=== PATIENT | male | born 1945 | race Hispanic/Latino ===

== ENCOUNTER 2017-04-27 08:10 | Emergency (ER) | payer MEDICARE ==
[2017-04-27 09:12] LABS: BASOPHILS % (AUTO) 0.5 % (0.0-5.0); EOSINOPHILS % (AUTO) 0.8 % (0.0-8.0); HEMATOCRIT 41.3 % (42-54); LYMPHOCYTES % (AUTO) 22.2 % (21.0-51.0); MEAN CORPUSCULAR HEMOGLOBIN 30.2 pg (27.0-33.0); MEAN CORPUSCULAR HGB CONC 34.3 g/dL (32.0-36.0); MEAN CORPUSCULAR VOLUME 88.2 fL (79-99); MONOCYTES % (AUTO) 5.1 % (3.0-13.0); NEUTROPHILS % (AUTO) 71.4 % (40.0-77.0); PLATELET COUNT (AUTO) 262 K/uL (130-400); RED BLOOD CELL COUNT(AUTO) 4.68 MIL/uL (4.50-6.20); RED CELL DISTRIBUTION WIDTH 13.2 % (11.0-15.5); WHITE BLOOD COUNT (AUTO) 8.8 K/uL (4.8-10.8)
[2017-04-27] MEDS ORDERED: FOSPHENYTOIN SODIUM 500 MG/10ML VIAL IJ ONE (09:14)
[2017-04-27 09:24] LABS: CREATININE 0.9 mg/dL (0.5-1.5); POTASSIUM 3.6 mmol/L (3.5-5.1)
[2017-04-27 09:28] LABS: ALBUMIN 3.7 g/dL (3.5-5.0); BILIRUBIN,TOTAL 0.5 mg/dL (0.2-1.0); TOTAL PROTEIN, SERUM 7.3 g/dL (6.0-8.3)
== END 2017-04-27 10:12 | disposition home or self-care (01) ==
LOC: EDH 08:10
DX: G40.909 Epilepsy, unspecified, not intractable, without status epilepticus (principal); E11.9 Type 2 diabetes mellitus without complications; E78.5 Hyperlipidemia, unspecified; I10 Essential (primary) hypertension; Z87.891 Personal history of nicotine dependence
CPT/HCPCS: 36415; 70450; 80053; 82948; 85025; 93005; 96365; 99285; Q2009

== ENCOUNTER → 2017-06-22 | Outpatient (CLI) | payer MEDICARE | END | disposition home or self-care (01) | LOC: OIH 09:15 | PROVIDERS: ATTEND Family Medicine | DX: I10 Essential (primary) hypertension (principal) | CPT/HCPCS: 71046 ==

== ENCOUNTER 2020-02-22 06:24 | Observation (INO) | payer OTHER, MEDICARE ==
[~2020-02-22] VITALS: Ht 162.6 cm; Wt 82.6 kg
[~2020-02-22 06:24] MED LIST: ATOR10 PO; DONE10TA43 PO; LISI-613 PO; METF-446 PO; PHEN100C9 PO
[2020-02-22] MEDS ORDERED: ACETAMINOPHEN 650 MG SUPPOSITORY RC ONE (06:44)
[2020-02-22] MEDS ORDERED: ZOSYN 3.375GM+NS 50ML 50 ML IV ONE (06:44)
[2020-02-22 07:00] LABS: ABG BASE EXCESS -2.9 mmol/L (-2.0-3.0); ABG HCO3 19.9 mmol/L (21.0-28.0); ABG OXYGEN SATURATION 94.3 % (95.0-99.0); ABG PCO2 30 mmHg (35-48)
[2020-02-22 07:23] LABS: BASOPHILS % (AUTO) 0.2 % (0.0-5.0); EOSINOPHILS % (AUTO) 0.2 % (0.0-8.0); HEMATOCRIT 37.3 % (42-54); LYMPHOCYTES % (AUTO) 18.3 % (21.0-51.0); MEAN CORPUSCULAR HEMOGLOBIN 29.1 pg (27.0-33.0); MEAN CORPUSCULAR VOLUME 88.2 fL (79-99); MONOCYTES % (AUTO) 10.5 % (3.0-13.0); NEUTROPHILS % (AUTO) 70.2 % (40.0-77.0); PLATELET COUNT (AUTO) 424 K/uL (130-400); RED BLOOD CELL COUNT(AUTO) 4.23 MIL/uL (4.50-6.20); RED CELL DISTRIBUTION WIDTH 12.9 % (11.0-15.5); WHITE BLOOD COUNT (AUTO) 9.8 K/uL (4.8-10.8)
[2020-02-22 07:31] LABS: APPEARANCE,URINE Clear (CLEAR); BILIRUBIN,URINE Negative (NEGATIVE); COLOR,URINE Dark Yellow (YELLOW); GLUCOSE, URINE (UA) Negative (NEGATIVE); KETONES,URINE 40 mg/dL (NEGATIVE); LEUKOCYTE ESTERASE ,URINE Negative (NEGATIVE); NITRATE,URINE Negative (NEGATIVE); OCCULT BLOOD,URINE Small (NEGATIVE); PROTEIN,URINE Trace mg/dL (NEGATIVE)
[2020-02-22 07:40] LABS: INR 2.81 (0.85-1.15); PROTHROMBIN TIME 29.2 SEC (9.6-11.6)
[2020-02-22 07:43] LABS: ALANINE AMINOTRANSFERASE 75 U/L (12-78); ALBUMIN 2.9 g/dL (3.5-5.0); ASPARTATE AMINOTRANSFERASE 44 U/L (10-37); BILIRUBIN,TOTAL 0.4 mg/dL (0.2-1.0); CARBON DIOXIDE 22 mmol/L (21-32); CHLORIDE 102 mmol/L (101-111); CREATINE KINASE, TOTAL 36 U/L (21-232); CREATININE 0.9 mg/dL (0.5-1.5); GLOMERULAR FILTR. RATE CALC 88 mL/min (>60); GLUCOSE,RANDOM 183 mg/dL (70-105); MYOGLOBIN 31 ng/mL (10-92); POTASSIUM 4.5 mmol/L (3.5-5.1); SODIUM SERUM 137 mmol/L (136-145); TOTAL PROTEIN, SERUM 6.5 g/dL (6.0-8.3); TROPONIN I < 0.04 ng/mL (0.00-0.06); UREA NITROGEN, BLOOD 15 mg/dL (7-18)
[2020-02-22 07:55] LABS: BACTERIA,URINE None Seen /HPF (None Seen); MUCUS,URINE Moderate LPF (None Seen)
[2020-02-22 07:56] LABS: SQUAMOUS EPITHELIAL CELL,UR Rare /HPF (0-2); TRANSITIONAL EPI CELLS,URINE Rare /HPF (None Seen); WBC,URINE 0-1 /HPF (0-1)
[2020-02-22] MEDS ORDERED: VANCOMYCIN 1GM+NS 250ML 250 ML IV ONE (09:12)
[2020-02-22] MEDS ORDERED: CEFTRIAXONE SODIUM 1 GM ONE (09:13)
[2020-02-22] MEDS ORDERED: AMPICILLIN 1GM+NS 50ML 50 ML IV SCH (09:30)
[2020-02-22] MEDS ORDERED: LABETALOL 20 MG/4 ML DISP.SYRIN IV PRN (12:00)
[2020-02-22] MEDS ORDERED: LIDOCAINE HCL-MPF 1% 2ML VIAL IV PRN (12:00)
[2020-02-22] MEDS ORDERED: DEXTROSE 50%-WATER 50 ML DISP.SYRIN IV PRN (12:00)
[2020-02-22] MEDS ORDERED: ACETAMINOPHEN-CODEINE 300/30MG TAB PO PRN (12:00)
[2020-02-22] MEDS ORDERED: ONDANSETRON HCL 4 MG/2 ML VIAL IVP PRN (12:00)
[2020-02-22] MEDS ORDERED: POTASSIUM CHLORIDE 10% ELIXIR 20 MEQ/15 ML UDCUP PO PRN (12:00)
[2020-02-22] MEDS ORDERED: POTASSIUM CHLORIDE 20MEQ/100ML 100 ML IV PRN (12:00)
[2020-02-22] MEDS ORDERED: ACETAMINOPHEN 325 MG TAB PO PRN (12:00)
[2020-02-22] MEDS ORDERED: POTASSIUM CHLORIDE 20 MEQ ERTAB PO PRN (12:00)
[2020-02-22] MEDS ORDERED: GLUCAGON 1MG KIT 1 MG ML IM PRN (12:00)
[2020-02-22 12:36] VITALS: BP 118/73
[2020-02-22] MEDS ORDERED: PHEN100C9 PO (12:48)
[2020-02-22] MEDS ORDERED: ENOX100D4 SQ (12:48)
[2020-02-22] MEDS ORDERED: WARF-57 PO (12:48)
[2020-02-22] MEDS ORDERED: METO25TA6 PO (12:48)
[2020-02-22] MEDS ORDERED: DONE10TA36 PO (12:48)
[2020-02-22] MEDS ORDERED: LISI-613 PO (12:48)
[2020-02-22] MEDS ORDERED: METF-446 PO (12:48)
[2020-02-22] MEDS ORDERED: ATOR10 PO (12:48)
[2020-02-22] MEDS: PHENYTOIN SODIUM 100 MG ERCAP PO SCH ×2 (14:08→20:08)
[2020-02-22 16:00] VITALS: BP 128/75
[2020-02-22] MEDS: INSULIN HUMULIN R 100 UNIT/ML 3ML SQ SCH ×2 (16:30→19:30)
--- NOTE | 2020-02-22 16:37 | NUR ---
HEMATURIA NOTED IN FINNEGAN BAG. BONNIE INSIDE SALES TRAINER MADE AWARE. ORDERS RECEIVED TO HOLD LOVENOX AND COUMADIN
[2020-02-22 19:30] VITALS: BP 129/74
[2020-02-22] MEDS: DONEPEZIL HCL 5 MG TAB PO SCH (19:58)
[2020-02-22] MEDS: FAMOTIDINE 20MG TAB 20 MG TAB PO SCH (19:58)
[2020-02-22] MEDS: ATORVASTATIN CALCIUM 20 MG TABLET PO SCH (19:58)
[2020-02-22 23:07] VITALS: BP 123/79
[2020-02-23 03:59] VITALS: BP 122/69
[2020-02-23 04:50] LABS: BASOPHILS % (AUTO) 0.2 % (0.0-5.0); EOSINOPHILS % (AUTO) 0.7 % (0.0-8.0); HEMATOCRIT 34.3 % (42-54); LYMPHOCYTES % (AUTO) 19.9 % (21.0-51.0); MEAN CORPUSCULAR HEMOGLOBIN 29.4 pg (27.0-33.0); MEAN CORPUSCULAR HGB CONC 33.8 g/dL (32.0-36.0); MEAN CORPUSCULAR VOLUME 87.1 fL (79-99); MONOCYTES % (AUTO) 12.3 % (3.0-13.0); NEUTROPHILS % (AUTO) 66.3 % (40.0-77.0); PLATELET COUNT (AUTO) 424 K/uL (130-400); RED BLOOD CELL COUNT(AUTO) 3.94 MIL/uL (4.50-6.20); RED CELL DISTRIBUTION WIDTH 12.6 % (11.0-15.5)
[2020-02-23 05:01] LABS: INR 2.95 (0.85-1.15); PROTHROMBIN TIME 30.6 SEC (9.6-11.6)
[2020-02-23 05:18] LABS: ALANINE AMINOTRANSFERASE 58 U/L (12-78); ALBUMIN 2.5 g/dL (3.5-5.0); AMMONIA 15 umol/L (11-32); ASPARTATE AMINOTRANSFERASE 36 U/L (10-37); B-TYPE NATRIURETIC PEPTIDE 28 pg/mL (0-100); BILIRUBIN,TOTAL 0.7 mg/dL (0.2-1.0); CARBON DIOXIDE 21 mmol/L (21-32); CHLORIDE 101 mmol/L (101-111); CREATININE 0.7 mg/dL (0.5-1.5); GLOMERULAR FILTR. RATE CALC 117 mL/min (>60); GLUCOSE,RANDOM 140 mg/dL (70-105); LACTATE DEHYDROGENASE 263 U/L (81-234); PHOSPHORUS 3.5 mg/dL (2.5-4.9); POTASSIUM 3.9 mmol/L (3.5-5.1); SODIUM SERUM 136 mmol/L (136-145); THYROID STIMULATING HORMONE 1.63 uIU/mL (0.36-3.74); TOTAL PROTEIN, SERUM 6.8 g/dL (6.0-8.3); UREA NITROGEN, BLOOD 11 mg/dL (7-18)
[2020-02-23] MEDS: INSULIN HUMULIN R 100 UNIT/ML 3ML SQ SCH ×4 (07:30→20:57)
[2020-02-23 08:00] VITALS: BP 116/65
[2020-02-23] MEDS: PHENYTOIN SODIUM 100 MG ERCAP PO SCH ×3 (08:44→20:45)
[2020-02-23] MEDS: LISINOPRIL 20 MG TABLET PO SCH (08:44)
[2020-02-23] MEDS: FAMOTIDINE 20MG TAB 20 MG TAB PO SCH ×2 (08:44→20:45)
[2020-02-23] MEDS: MAGNESIUM 2GM PREMIX 50ML 50 ML IV PRN (08:53)
--- NOTE | 2020-02-23 09:30 | NUR ---
CHART CHECK COMPLETED. Pt IS A 74 Y.O. MALE ADMITTED SECONDARY TO COVID, PUI, R/O MENINGITIS. Pt HAS A PAST MEDICAL HISTORY SIGNIFICANT FOR SEIZURE, ALZHEIMER DEMENTIA, DVT, PE, DM, HTN, HLD. Pt CURRENTLY WITH NO DIET ORDER IN PLACE. PLEASE REQUEST FORMAL SKILLED SPEECH/SWALLOW EVALUATION IF Pt PRESENTS WITH +S/S OF ASPIRATION SUCH COUGH RESPONSE, THROAT CLEAR, OR WET VOCAL QUALITY DURING P.O. Addendum: 02/23/20 at [address] Amended: Links added.
[2020-02-23 11:22] VITALS: BP 130/77
--- NOTE | 2020-02-23 12:39 | NUR ---
ADRIANNE NOTE/IA UNABLE TO MET WITH PATIENT IN ROOM, NEXT OF KIN CALLED, MARSHALL WOOTEN. PER DAUGHTER, PATIENT LIVES ALONE SHE VISITS DAILY IN BETWEEN PROVIDER SERVICES, HAS PROVIDER SERVICES FOR 4-5 1/2 HR DAILY MON-SUN, HAS ROLLATOR WALKER, AND FEELS SAFE FOR PATIENT TO RETURN HOME. DAUGHTER ASKED ABOUT INCREASE IN PROVIDER SERVICES. DAUGHTER ADVISED TO CALL PROVIDER COMPANY AND REQUEST HOURS OR INFORMATION ON QUALIFYING DIAGNOSIS FOR INCREASE IN HOURS, DAUGHTER VERBALIZED UNDERSTANDING. CORRECT PATIENT ADDRESS AND PHONE NUMBER FOLLOWS: [phone] [address] [facility]. [id number] Addendum: 02/23/20 at 1242 by GUILHERME SILVA RN CM Amended: Links added.
--- NOTE | 2020-02-23 15:19 | NUR ---
DISCHARGE DELAYED PER BONNIE THUMB SEWER DISCHARGE PT AFTER PT VOIDS. FINNEGAN REMOVED AT 1500. CATHETER INTACT. TOLERATED WELL. NO SIGNS OF HEMATURIA NOTED. PT DUE TO VOID BEFORE 0000 AT 02/24/20
[2020-02-23 16:00] VITALS: BP 136/76
[2020-02-23 20:40] VITALS: BP 106/70
[2020-02-23] MEDS: DONEPEZIL HCL 5 MG TAB PO SCH (20:45)
[2020-02-23] MEDS: ATORVASTATIN CALCIUM 20 MG TABLET PO SCH (20:45)
[2020-02-23 23:49] VITALS: BP 109/74
[2020-02-24 04:27] VITALS: BP 127/67
[2020-02-24] MEDS: INSULIN HUMULIN R 100 UNIT/ML 3ML SQ SCH (05:49)
[2020-02-24] MEDS: MAGNESIUM 2GM PREMIX 50ML 50 ML IV PRN (06:17)
--- NOTE | 2020-02-24 07:35 | NUR ---
PENDING DISCHARGE RECEIVED NURSE FROM [facility]. REPORTS PT ABLE TO URINATE APPROX 125ML DURING SHIFT. PT CLEAR FOR DISCHARGE. DAUGHTER NOTIFIED. WILL BE ABLE TO PICK PT UP AT 0930
[2020-02-24 08:03] VITALS: BP 121/76
[2020-02-24] MEDS: PHENYTOIN SODIUM 100 MG ERCAP PO SCH (08:48)
[2020-02-24] MEDS: LISINOPRIL 20 MG TABLET PO SCH (08:49)
[2020-02-24] MEDS: FAMOTIDINE 20MG TAB 20 MG TAB PO SCH (08:49)
--- NOTE | 2020-02-24 09:38 | NUR ---
DISCHARGE Pt clear for discharge at this time. VS WNL. aaox2 per baseline. NAD. Breathing even and unlabored on room air. Discharge instructions, follow up appointment and quarantine teaching rendered to patient and daughter via telephone. Silvia CERVANTES as tumbler machine operator.
== END 2020-02-24 09:56 | disposition home or self-care (01) ==
LOC: EDH 06:24 → EDHIP 10:33 → 2BH 12:10 → 2AH 17:07
PROVIDERS: ADMIT Internal Medicine Pulmonary Disease; ATTEND Internal Medicine Pulmonary Disease
DX: U07.1 COVID-19 (principal); E11.9 Type 2 diabetes mellitus without complications; E78.5 Hyperlipidemia, unspecified; I10 Essential (primary) hypertension; G30.9 Alzheimer's disease, unspecified; F02.80 Dementia in other diseases classified elsewhere, unspecified severity, without behavioral disturbance, psychotic disturbance, mood disturbance, and anxiety; G40.909 Epilepsy, unspecified, not intractable, without status epilepticus; I26.99 Other pulmonary embolism without acute cor pulmonale; Z79.01 Long term (current) use of anticoagulants; Z79.899 Other long term (current) drug therapy; Z86.711 Personal history of pulmonary embolism; Z86.718 Personal history of other venous thrombosis and embolism
CPT/HCPCS: 36415 ×3; 36600; 70450; 71045; 80053 ×2; 80185; 81001; 82010; 82140; 82550; 82728; 82803; 82948 ×8; 83605; 83615; 83735 ×2; 83874; 83880; 84100; 84145 ×2; 84443; 84484; 85025 ×2; 85384; 85610 ×2; 85730; 86140; 86900; 86901; 87040 ×2; 87088; 87426; 87804 ×2; 93005; 96365; 96366 ×2; G0378 ×47; J0290; J0696; J2543; J3370; J3475 ×2; U0003

== ENCOUNTER 2021-04-07 11:38 | Observation (INO) | payer OTHER, MEDICARE ==
[~2021-04-07] VITALS: Ht 167.6 cm; Wt 102.5 kg
[~2021-04-07 11:38] MED LIST changes: +DONE-53 PO; -DONE10TA43 PO; +ENOX100D4 SQ; -LISI-613 PO; +LISI20TA24 PO; +METO25TA6 PO; +WARF-57 PO
[2021-04-07] MEDS ORDERED: ZOSYN 3.375GM +NS 50ML IV SCH ×2 (13:30→16:00)
[2021-04-07] MEDS ORDERED: ZOSYN 3.375GM+NS 50ML 50 ML IV SCH (13:30)
[2021-04-07] MEDS ORDERED: MORPHINE 4 MG SYG IV SCH (13:30)
[2021-04-07] MEDS ORDERED: ONDANSETRON 4MG INJ IVP SCH (13:30)
[2021-04-07 13:45] LABS: BASOPHILS % (AUTO) 0.5 % (0.0-5.0); EOSINOPHILS % (AUTO) 3.2 % (0.0-8.0); HEMATOCRIT 37.8 % (42-54); LYMPHOCYTES % (AUTO) 22.4 % (21.0-51.0); MEAN CORPUSCULAR HEMOGLOBIN 30.4 pg (27.0-33.0); MONOCYTES % (AUTO) 8.9 % (3.0-13.0); NEUTROPHILS % (AUTO) 64.6 % (40.0-77.0); PLATELET COUNT (AUTO) 332 K/uL (130-400); RED BLOOD CELL COUNT(AUTO) 3.98 MIL/uL (4.50-6.20); RED CELL DISTRIBUTION WIDTH 12.1 % (11.0-15.5); WHITE BLOOD COUNT (AUTO) 11.2 K/uL (4.8-10.8)
[2021-04-07 13:54] LABS: CREATININE 1.4 mg/dL (0.5-1.5); POTASSIUM 4.4 mmol/L (3.5-5.1)
[2021-04-07 13:56] LABS: INR 1.12 (0.85-1.15); PROTHROMBIN TIME 12.1 SEC (9.6-11.6)
[2021-04-07 13:57] LABS: PARTIAL THROMBOPLASTIN TIME 32.3 SEC (26.3-35.5)
[2021-04-07 14:00] LABS: ALBUMIN 3.6 g/dL (3.5-5.0); BILIRUBIN,TOTAL 0.4 mg/dL (0.2-1.0); TOTAL PROTEIN, SERUM 7.9 g/dL (6.0-8.3)
[2021-04-07 14:23] LABS: APPEARANCE,URINE Clear (CLEAR); BILIRUBIN,URINE Negative (NEGATIVE); COLOR,URINE Dark Yellow (YELLOW); GLUCOSE, URINE (UA) Negative (NEGATIVE); KETONES,URINE Trace mg/dL (NEGATIVE); LEUKOCYTE ESTERASE ,URINE Negative (NEGATIVE); NITRATE,URINE Negative (NEGATIVE); OCCULT BLOOD,URINE Negative (NEGATIVE); PROTEIN,URINE Negative (NEGATIVE)
[2021-04-07 14:33] LABS: BACTERIA,URINE Few /HPF (None Seen); RBC,URINE 0-1 /HPF (0-1)
[2021-04-07 14:34] LABS: MUCUS,URINE Rare LPF (None Seen); SQUAMOUS EPITHELIAL CELL,UR Rare /HPF (0-2)
[2021-04-07] MEDS ORDERED: LIDOCAINE HCL 400MG/20ML VIAL ONE (14:39)
[2021-04-07] MEDS ORDERED: HYDRALAZINE 20MG/ML VIAL IV PRN (16:00)
[2021-04-07] MEDS ORDERED: MORPHINE 2 MG SYG IVP PRN (16:00)
[2021-04-07] MEDS ORDERED: TEMAZEPAM 15 MG CAPSULE PO PRN (16:00)
[2021-04-07] MEDS ORDERED: ONDANSETRON 4MG INJ IVP PRN (16:00)
[2021-04-07] MEDS ORDERED: HYDROCODONE/ACETAMINOPHEN 5/325 MG TAB PO PRN (16:00)
[2021-04-07] MEDS ORDERED: ACETAMINOPHEN 325 MG TAB PO PRN (16:00)
[2021-04-07] MEDS ORDERED: ACETAMINOPHEN 650 MG SUPPOSITORY RC PRN (16:00)
[2021-04-07] MEDS ORDERED: CLONIDINE HCL 0.1 MG TABLET PO PRN (16:00)
[2021-04-07] MEDS ORDERED: PANTOPRAZOLE 40 MG TAB DR PO SCH (16:30)
[2021-04-07] MEDS: LACTATED RINGERS 1000ML 1,000 ML IV SCH ×2 (17:27→23:40)
[2021-04-07] MEDS: INSULIN HUMULIN R 100 UNIT/ML 3ML SQ SCH ×2 (17:37→21:00)
[2021-04-07] MEDS ORDERED: ENOXAPARIN SODIUM 40 MG/0.4 ML SYRINGE SQ ONE (22:00)
[2021-04-07] MEDS: ZOSYN 3.375GM+NS 50ML 50 ML IV SCH (22:14)
[2021-04-07 22:30] VITALS: BP 110/44
[2021-04-07] MEDS ORDERED: CLIN-141 PO (23:21)
[2021-04-07] MEDS ORDERED: MEMA10TA55 PO (23:21)
[2021-04-07] MEDS ORDERED: TYL3B PO (23:21)
[2021-04-07] MEDS ORDERED: APIX5TAB PO (23:21)
[2021-04-07] MEDS ORDERED: LEVE500T19 PO (23:21)
[2021-04-07] MEDS ORDERED: BACL10TA PO (23:21)
[2021-04-07] MEDS ORDERED: GLIP2.5T2 PO (23:21)
[2021-04-07] MEDS ORDERED: IBUP-2070 PO (23:21)
[2021-04-08] MEDS: LACTATED RINGERS 1000ML 1,000 ML IV SCH ×3 (03:23→22:54)
[2021-04-08 03:51] VITALS: BP 99/54
[2021-04-08] MEDS: ZOSYN 3.375GM+NS 50ML 50 ML IV SCH ×3 (04:31→20:19)
[2021-04-08 04:50] LABS: BASOPHILS % (AUTO) 0.6 % (0.0-5.0); HEMATOCRIT 31.8 % (42-54); LYMPHOCYTES % (AUTO) 23.2 % (21.0-51.0); MEAN CORPUSCULAR HEMOGLOBIN 30.1 pg (27.0-33.0); MEAN CORPUSCULAR HGB CONC 32.7 g/dL (32.0-36.0); MEAN CORPUSCULAR VOLUME 91.9 fL (79-99); MONOCYTES % (AUTO) 8.3 % (3.0-13.0); NEUTROPHILS % (AUTO) 62.4 % (40.0-77.0); PLATELET COUNT (AUTO) 284 K/uL (130-400); RED BLOOD CELL COUNT(AUTO) 3.46 MIL/uL (4.50-6.20); RED CELL DISTRIBUTION WIDTH 12.1 % (11.0-15.5); WHITE BLOOD COUNT (AUTO) 9.7 K/uL (4.8-10.8)
[2021-04-08 05:16] LABS: CREATININE 1.4 mg/dL (0.5-1.5); POTASSIUM 4.2 mmol/L (3.5-5.1)
[2021-04-08 05:20] LABS: HEMOGLOBIN A1C 8.8 % (4.0-6.0)
[2021-04-08] MEDS: INSULIN HUMULIN R 100 UNIT/ML 3ML SQ SCH ×4 (06:27→21:00)
[2021-04-08] MEDS: PANTOPRAZOLE 40 MG TAB DR PO SCH (06:32)
[2021-04-08 06:42] VITALS: BP 112/65
[2021-04-08] MEDS: ENOXAPARIN SODIUM 40 MG/0.4 ML SYRINGE SQ SCH (08:17)
[2021-04-08] MEDS: LEVETIRACETAM 500 MG TABLET PO SCH ×2 (10:45→20:16)
[2021-04-08] MEDS: PHENYTOIN SODIUM 100 MG ERCAP PO SCH ×2 (10:45→17:18)
[2021-04-08 11:42] VITALS: BP 100/59
[2021-04-08] MEDS ORDERED: ACETAMINOPHEN WITH CODEINE 1 TAB TAB PO PRN (12:00)
[2021-04-08] MEDS: DONEPEZIL HCL 5 MG TAB PO SCH (12:39)
[2021-04-08] MEDS: METFORMIN HCL 500 MG TABLET PO SCH ×2 (12:39→17:17)
[2021-04-08 16:00] VITALS: BP 111/66
[2021-04-08 20:00] VITALS: BP 122/70
[2021-04-08] MEDS: MEMANTINE HCL 5 MG TABLET PO SCH (20:16)
[2021-04-08] MEDS: METOPROLOL TARTRATE 25 MG TAB PO SCH (20:16)
[2021-04-08] MEDS ORDERED: ATORVASTATIN 10 MG TABLET PO SCH (21:00)
[2021-04-08] MEDS ORDERED: NON-FORMULARY MEDICATION 1 EACH (Metformin HCl 1,000 MG) PO SCH (21:00)
[2021-04-09] VITALS: BP 128/66
[2021-04-09 04:00] VITALS: BP 115/66
[2021-04-09] MEDS: ZOSYN 3.375GM+NS 50ML 50 ML IV SCH (04:06)
[2021-04-09 04:36] LABS: HEMATOCRIT 31.4 % (42-54); MEAN CORPUSCULAR HEMOGLOBIN 29.4 pg (27.0-33.0); MEAN CORPUSCULAR HGB CONC 32.2 g/dL (32.0-36.0); MEAN CORPUSCULAR VOLUME 91.3 fL (79-99); RED BLOOD CELL COUNT(AUTO) 3.44 MIL/uL (4.50-6.20); RED CELL DISTRIBUTION WIDTH 11.9 % (11.0-15.5); WHITE BLOOD COUNT (AUTO) 8.5 K/uL (4.8-10.8)
[2021-04-09 04:51] LABS: CREATININE 1.3 mg/dL (0.5-1.5); POTASSIUM 3.8 mmol/L (3.5-5.1)
[2021-04-09] MEDS: INSULIN HUMULIN R 100 UNIT/ML 3ML SQ SCH ×2 (06:21→11:11)
[2021-04-09] MEDS: PANTOPRAZOLE 40 MG TAB DR PO SCH (06:56)
[2021-04-09] MEDS: PHENYTOIN SODIUM 100 MG ERCAP PO SCH ×2 (06:56→11:11)
[2021-04-09 08:12] VITALS: BP 118/68
[2021-04-09] MEDS ORDERED: LISINOPRIL 20 MG TABLET PO SCH (09:00)
[2021-04-09] MEDS: DONEPEZIL HCL 5 MG TAB PO SCH (09:09)
[2021-04-09] MEDS: LEVETIRACETAM 500 MG TABLET PO SCH (09:09)
[2021-04-09] MEDS: MEMANTINE HCL 5 MG TABLET PO SCH (09:10)
[2021-04-09] MEDS: METOPROLOL TARTRATE 25 MG TAB PO SCH (09:10)
[2021-04-09] MEDS: METFORMIN HCL 500 MG TABLET PO SCH (09:14)
[2021-04-09] MEDS: ENOXAPARIN SODIUM 40 MG/0.4 ML SYRINGE SQ SCH (09:16)
[2021-04-09 10:56] VITALS: BP 124/78
[2021-04-09] MEDS ORDERED: CLIN-141 PO (13:36)
[2021-04-09] MEDS ORDERED: AMOX-426 PO (13:36)
[2021-04-09] MEDS ORDERED: APIXABAN 5 MG TABLET PO ONE (15:20)
[2021-04-09] MEDS ORDERED: APIXABAN 5 MG TABLET PO SCH (21:00)
== END 2021-04-09 18:10 | disposition home or self-care (01) ==
LOC: EDH 11:38 → EDHIP 15:57 → 3BH 21:16
PROVIDERS: ADMIT Internal Medicine Pulmonary Disease; ATTEND Internal Medicine Pulmonary Disease
DX: L02.212 Cutaneous abscess of back [any part, except buttock and flank] (principal); Z20.822 Contact with and (suspected) exposure to COVID-19; L72.3 Sebaceous cyst; E11.9 Type 2 diabetes mellitus without complications; I10 Essential (primary) hypertension; E78.5 Hyperlipidemia, unspecified; I25.10 Atherosclerotic heart disease of native coronary artery without angina pectoris; G30.9 Alzheimer's disease, unspecified; F02.80 Dementia in other diseases classified elsewhere, unspecified severity, without behavioral disturbance, psychotic disturbance, mood disturbance, and anxiety; R11.2 Nausea with vomiting, unspecified; E78.00 Pure hypercholesterolemia, unspecified; G40.909 Epilepsy, unspecified, not intractable, without status epilepticus; N28.9 Disorder of kidney and ureter, unspecified; Z86.718 Personal history of other venous thrombosis and embolism; Z86.711 Personal history of pulmonary embolism; Z79.899 Other long term (current) drug therapy; Z79.01 Long term (current) use of anticoagulants
CPT/HCPCS: 36415; 71250; 80048; 80053; 81001; 82550; 82948; 83036; 83605; 83874; 84145; 84484; 85025; 85027; 85610; 85730; 87040; 87070; 87076; 87088; 87635; 96361; 96365; 96366; 96372; 96375; 96376; C9803; G0378; J1650; J1815; J2270; J2405; J2543; J3490; J7120

== ENCOUNTER 2021-08-01 14:58 | Emergency (ER) | payer OTHER, MEDICARE ==
[~2021-08-01] VITALS: Ht 175.3 cm; Wt 97.5 kg
[~2021-08-01 14:58] MED LIST changes: +AMOX-426 PO; +APIX5TAB PO; +BACL10TA PO; +CLIN-141 PO; -ENOX100D4 SQ; +GLIP2.5T2 PO; +IBUP-2070 PO; +LEVE500T19 PO; +MEMA10TA55 PO; +TYL3B PO; -WARF-57 PO
[2021-08-01] MEDS ORDERED: ACETAMINOPHEN 500 MG TABLET ONE (15:15)
[2021-08-01] MEDS ORDERED: ACETAMINOPHEN 500 MG TABLET PO ONE (15:30)
[2021-08-01 15:33] LABS: APPEARANCE,URINE Clear (CLEAR); BILIRUBIN,URINE Negative (NEGATIVE); COLOR,URINE Dark Yellow (YELLOW); GLUCOSE, URINE (UA) Negative (NEGATIVE); KETONES,URINE Trace mg/dL (NEGATIVE); LEUKOCYTE ESTERASE ,URINE Trace (NEGATIVE); NITRATE,URINE Negative (NEGATIVE); OCCULT BLOOD,URINE Negative (NEGATIVE); PROTEIN,URINE Negative (NEGATIVE)
[2021-08-01 15:37] LABS: BASOPHILS % (AUTO) 0.3 % (0.0-5.0); LYMPHOCYTES % (AUTO) 17.4 % (21.0-51.0); MEAN CORPUSCULAR HEMOGLOBIN 30.1 pg (27.0-33.0); MEAN CORPUSCULAR HGB CONC 33.2 g/dL (32.0-36.0); MEAN CORPUSCULAR VOLUME 90.7 fL (79-99); MONOCYTES % (AUTO) 8.3 % (3.0-13.0); NEUTROPHILS % (AUTO) 72.7 % (40.0-77.0); PLATELET COUNT (AUTO) 290 K/uL (130-400); RED BLOOD CELL COUNT(AUTO) 4.52 MIL/uL (4.50-6.20); RED CELL DISTRIBUTION WIDTH 12.8 % (11.0-15.5); WHITE BLOOD COUNT (AUTO) 14.6 K/uL (4.8-10.8)
[2021-08-01 15:44] LABS: BACTERIA,URINE Few /HPF (None Seen); RBC,URINE 0-1 /HPF (0-1)
[2021-08-01 15:45] LABS: MUCUS,URINE Few LPF (None Seen); SQUAMOUS EPITHELIAL CELL,UR Rare /HPF (0-2)
[2021-08-01 15:53] LABS: CREATININE 1.3 mg/dL (0.5-1.5); POTASSIUM 4.4 mmol/L (3.5-5.1)
[2021-08-01 15:58] LABS: ALBUMIN 3.8 g/dL (3.5-5.0); BILIRUBIN,TOTAL 0.6 mg/dL (0.2-1.0); TOTAL PROTEIN, SERUM 7.3 g/dL (6.0-8.3)
[2021-08-01] MEDS ORDERED: 0.9%NACL 1000ML 1,000 ML IV ONE (16:30)
[2021-08-01 16:53] VITALS: BP 120/72
[2021-08-01] MEDS ORDERED: FLUT16H NASAL (16:58)
[2021-08-01] MEDS ORDERED: BENZ-39 PO (16:58)
[2021-08-01] MEDS ORDERED: LORA10TA7 PO (16:58)
[2021-08-01] MEDS ORDERED: DOXY100V2 IV (16:58)
== END 2021-08-01 17:46 | disposition home or self-care (01) ==
LOC: EDH 14:58
DX: J06.9 Acute upper respiratory infection, unspecified (principal); Z20.822 Contact with and (suspected) exposure to COVID-19; F03.90 Unspecified dementia, unspecified severity, without behavioral disturbance, psychotic disturbance, mood disturbance, and anxiety; E11.9 Type 2 diabetes mellitus without complications; E78.00 Pure hypercholesterolemia, unspecified; E86.0 Dehydration; I10 Essential (primary) hypertension; Z79.899 Other long term (current) drug therapy; Z79.84 Long term (current) use of oral hypoglycemic drugs
CPT/HCPCS: 36415; 71045; 80053; 81001; 84484; 85025; 87635; 87804 ×2; 87880; 93005; 96360; 99285; C9803; J7030

== ENCOUNTER 2023-03-06 17:38 | Emergency (ER) | payer OTHER, MEDICARE ==
[~2023-03-06] VITALS: Ht 160 cm; Wt 81.6 kg
[~2023-03-06 17:38] MED LIST changes: +BENZ-39 PO; +BENZ200C53 PO; +DOXY100V2 IV; +FLUT16H NASAL; +LORA10TA7 PO
[2023-03-06 18:37] LABS: BASOPHILS # (AUTO) 0.06 K/uL (0.00-0.20); BASOPHILS % (AUTO) 0.7 % (0.0-5.0); EOSINOPHILS # (AUTO) 0.14 K/uL (0.00-0.70); EOSINOPHILS % (AUTO) 1.6 % (0.0-8.0); HEMATOCRIT 40.7 % (42-54); IMMATURE GRANULOCYTE ABSOLUTE 0.02 K/uL (0-1); LYMPHOCYTES # (AUTO) 2.2 K/uL (1.0-4.8); LYMPHOCYTES % (AUTO) 24.3 % (21.0-51.0); MEAN CORPUSCULAR HEMOGLOBIN 30.4 pg (27.0-33.0); MEAN CORPUSCULAR HGB CONC 33.2 g/dL (32.0-36.0); MEAN CORPUSCULAR VOLUME 91.7 fL (79-99); MONOCYTES # (AUTO) 0.7 K/uL (0.1-1.0); MONOCYTES % (AUTO) 7.3 % (3.0-13.0); NEUTROPHILS # (AUTO) 5.9 K/uL (1.8-7.7); NEUTROPHILS % (AUTO) 65.9 % (40.0-77.0); PLATELET COUNT (AUTO) 279 K/uL (130-400); RED BLOOD CELL COUNT(AUTO) 4.44 MIL/uL (4.50-6.20); RED CELL DISTRIBUTION WIDTH 12.9 % (11.0-15.5)
[2023-03-06 18:47] LABS: POTASSIUM 4.2 mmol/L (3.5-5.1)
[2023-03-06 18:52] LABS: ALBUMIN 3.5 g/dL (3.5-5.0); BILIRUBIN,TOTAL 0.4 mg/dL (0.2-1.0); TOTAL PROTEIN, SERUM 7.1 g/dL (6.0-8.3)
[2023-03-06 18:56] LABS: RAPID GROUP A STREP negative (NEGATIVE)
[2023-03-06 18:58] LABS: SARS-CoV-2, RNA, NAAT NEGATIVE SARS CoV-2 (NEGATIVE)
[2023-03-06 19:09] LABS: INFLUENZA TYPE A Negative For Type A (NEGATIVE); INFLUENZA TYPE B Negative For Type B (NEGATIVE)
[2023-03-06 21:52] VITALS: BP 100/62; PULSE 58; RESP 16; O2SAT 96
== END 2023-03-06 22:14 | disposition home or self-care (01) ==
LOC: EDH 17:38
DX: S00.83XA Contusion of other part of head, initial encounter (principal); I10 Essential (primary) hypertension; E78.00 Pure hypercholesterolemia, unspecified; Z20.822 Contact with and (suspected) exposure to COVID-19; Z79.82 Long term (current) use of aspirin; Z79.84 Long term (current) use of oral hypoglycemic drugs; Z79.899 Other long term (current) drug therapy; Z98.890 Other specified postprocedural states; W18.39XA Other fall on same level, initial encounter; Y93.89 Activity, other specified; Y92.89 Other specified places as the place of occurrence of the external cause; Y99.8 Other external cause status
CPT/HCPCS: 99285; 70450; 71045; 87635; 84484; 80053; 85025; 87880; 87804 ×2; 36415; 72125; 93005; C9803

== ENCOUNTER 2023-09-06 10:50 | Emergency (ER) | payer OTHER, MEDICARE ==
[~2023-09-06] VITALS: Ht 170.2 cm; Wt 83.9 kg
[~2023-09-06 10:50] MED LIST changes: +MEMA10TA21 PO; -MEMA10TA55 PO
[2023-09-06 11:50] LABS: BASOPHILS # (AUTO) 0.05 K/uL (0.00-0.20); BASOPHILS % (AUTO) 0.7 % (0.0-5.0); EOSINOPHILS # (AUTO) 0.25 K/uL (0.00-0.70); EOSINOPHILS % (AUTO) 3.3 % (0.0-8.0); HEMATOCRIT 40.3 % (42-54); IMMATURE GRANULOCYTE ABSOLUTE 0.02 K/uL (0-1); LYMPHOCYTES # (AUTO) 2.1 K/uL (1.0-4.8); LYMPHOCYTES % (AUTO) 26.7 % (21.0-51.0); MEAN CORPUSCULAR HEMOGLOBIN 30.7 pg (27.0-33.0); MEAN CORPUSCULAR HGB CONC 33.3 g/dL (32.0-36.0); MEAN CORPUSCULAR VOLUME 92.2 fL (79-99); MONOCYTES # (AUTO) 0.6 K/uL (0.1-1.0); MONOCYTES % (AUTO) 8.3 % (3.0-13.0); NEUTROPHILS # (AUTO) 4.7 K/uL (1.8-7.7); NEUTROPHILS % (AUTO) 60.7 % (40.0-77.0); PLATELET COUNT (AUTO) 227 K/uL (130-400); RED BLOOD CELL COUNT(AUTO) 4.37 MIL/uL (4.50-6.20); RED CELL DISTRIBUTION WIDTH 13.1 % (11.0-15.5); WHITE BLOOD COUNT (AUTO) 7.7 K/uL (4.8-10.8)
[2023-09-06 12:27] LABS: ALBUMIN 3.8 g/dL (3.5-5.0); BILIRUBIN,TOTAL 0.6 mg/dL (0.2-1.0); CREATININE 1.2 mg/dL (0.5-1.3); POTASSIUM 4.1 mmol/L (3.5-5.1); TOTAL PROTEIN, SERUM 7.3 g/dL (6.0-8.3)
[2023-09-06] MEDS: 0.9%NACL 1000ML 1,000 ML IV ONE (13:13)
[2023-09-06 16:40] VITALS: BP 100/67; PULSE 57; RESP 18; O2SAT 97
== END 2023-09-06 16:51 | disposition home or self-care (01) ==
LOC: EDH 10:50
DX: R41.82 Altered mental status, unspecified (principal); E86.0 Dehydration; I10 Essential (primary) hypertension; E11.9 Type 2 diabetes mellitus without complications; E78.00 Pure hypercholesterolemia, unspecified; G20.A1 Parkinson's disease without dyskinesia, without mention of fluctuations; Z79.84 Long term (current) use of oral hypoglycemic drugs; Z79.899 Other long term (current) drug therapy; Z98.890 Other specified postprocedural states
CPT/HCPCS: 99285; 96360; 70450; 71045; 96361; 84484; 80053; 85025; 36415; 93005; J7030